=== PATIENT | male | born 1965 | race Caucasian/White ===

== ENCOUNTER 2018-11-24 12:04 | Emergency (ER) | payer OTHER ==
[~2018-11-24] VITALS: Ht 172.7 cm; Wt 97.7 kg
[2018-11-24 12:22] VITALS: Ht 172.7 cm; Wt 97.7 kg
[2018-11-24] MEDS ORDERED: LISINOPRIL-HCT1 EAC8 PO (12:25)
[2018-11-24] MEDS ORDERED: ROBAXIN500 MG PO (12:25)
[2018-11-24] MEDS ORDERED: ZOLOFT100 MG PO (12:25)
[2018-11-24] MEDS ORDERED: MOBIC7.5 MG PO (12:26)
[2018-11-24] MEDS ORDERED: VASCEPA1 GM PO (12:26)
[2018-11-24 13:12] LABS: BASOPHILS 0.2 % (0-2); EOSINOPHILS 0.5 % (0-7); HEMATOCRIT 44.1 % (42.0-54.0); HEMOGLOBIN 15.8 g/dL (13.5-17.5); IMMATURE GRANULOCYTES 0.4 % (0-5); LYMPHOCYTES 21.2 % (15-50); MCHC 35.8 g/dL (31.0-37.0); MCV 86.6 fL (80.0-100.0); MEAN PLATELET VOLUME 11.7 fL (7.4-10.4); MONOCYTES 8.2 % (2-11); NEUTROPHILS 69.5 % (40-80); PLATELET COUNT 219 10x3/uL (130-400); RBC 5.09 10x6/uL (4.20-6.10); WBC 14.8 10x3/uL (4.8-10.8)
[2018-11-24 13:36] LABS: ALBUMIN 4.2 g/dL (3.4-5.0); ANION GAP 13.2 mmol/L (8-16); BILIRUBIN - TOTAL 1.28 mg/dL (0.2-1.3); CALCIUM 8.7 mg/dL (8.5-10.1); CARBON DIOXIDE 29.4 mmol/L (21.0-32.0); CREATININE - SERUM 1.1 mg/dL (0.6-1.3); POTASSIUM - SERUM 3.6 mmol/L (3.5-5.1); PROTEIN - SERUM 7.7 g/dL (6.4-8.2)
[2018-11-24] MEDS ORDERED: AUGMENTIN 875-11 TAB PO (14:22)
[2018-11-24] MEDS ORDERED: VOLTAREN75 MG PO (14:22)
[2018-11-24 14:36] VITALS: BP 136/62
== END 2018-11-24 14:36 | disposition home or self-care (01) ==
LOC: D.ER 12:04
PROVIDERS: Emergency Medicine
DX: L03.113 Cellulitis of right upper limb (principal); S51.851A Open bite of right forearm, initial encounter; W55.01XA Bitten by cat, initial encounter; Y93.89 Activity, other specified; Y92.019 Unspecified place in single-family (private) house as the place of occurrence of the external cause

== ENCOUNTER 2019-04-14 12:18 | Emergency (ER) | payer OTHER ==
[2018-11-24 12:22] VITALS: BMI 32.7
[~2019-04-14 12:18] MED LIST: AUGMENTIN 875-11 TAB PO; LISINOPRIL-HCT1 EAC8 PO; MOBIC7.5 MG PO; ROBAXIN500 MG PO; VASCEPA1 GM PO; VOLTAREN75 MG PO; ZOLOFT100 MG PO
== END 2019-04-14 12:43 | disposition left against medical advice (07) ==
LOC: D.ER 12:18
DX: M54.9 Dorsalgia, unspecified (principal)

== ENCOUNTER 2020-04-05 10:11 | Emergency (ER) | payer OTHER ==
[~2020-04-05] VITALS: Ht 172.7 cm; Wt 101.8 kg
[2020-04-05 10:15] VITALS: Ht 172.7 cm; Wt 101.8 kg
[2020-04-05] MEDS ORDERED: CRESTOR5 MG PO (10:18)
[2020-04-05 10:57] LABS: BILIRUBIN NEGATIVE (NEGATIVE); GLUCOSE NEGATIVE (NEGATIVE); KETONE NEGATIVE (NEGATIVE); NITRITE NEGATIVE (NEGATIVE); UROBILINOGEN NORMAL (NORMAL)
[2020-04-05 12:14] VITALS: BP 127/78
== END 2020-04-05 12:15 | disposition home or self-care (01) ==
LOC: D.ER 10:11
PROVIDERS: Family Medicine
DX: M54.5 Low back pain (principal); G89.29 Other chronic pain; I10 Essential (primary) hypertension